=== PATIENT | male | born 1975 | race Caucasian/White ===

== ENCOUNTER → 2021-04-09 | Outpatient (CLI) | payer BC | END | disposition home or self-care (01) | LOC: MRI 14:42 | PROVIDERS: ATTEND Nurse Practitioner Family | DX: G44.52 New daily persistent headache (NDPH) (principal); R47.1 Dysarthria and anarthria ==

== ENCOUNTER → 2021-10-29 | Outpatient (CLI) | payer BC | END | disposition home or self-care (01) | LOC: US 09:42 | PROVIDERS: ATTEND Nurse Practitioner Family | DX: R10.84 Generalized abdominal pain (principal) ==

== ENCOUNTER → 2022-11-10 | Outpatient (CLI) | payer BC | END | disposition home or self-care (01) | LOC: RAD 08:10 | PROVIDERS: ATTEND Nurse Practitioner Family | DX: I51.7 Cardiomegaly (principal); R00.2 Palpitations ==

== ENCOUNTER → 2022-11-12 | Outpatient (CLI) | payer BC | END | disposition home or self-care (01) | LOC: CARD 01:01 | PROVIDERS: ATTEND Nurse Practitioner Family | DX: R00.0 Tachycardia, unspecified (principal); R00.2 Palpitations ==

== ENCOUNTER → 2023-02-26 | Outpatient (CLI) | payer BC | END | disposition home or self-care (01) | LOC: RAD 07:35 | PROVIDERS: ATTEND Nurse Practitioner Family | DX: M51.37 Other intervertebral disc degeneration, lumbosacral region (principal) ==

== ENCOUNTER → 2024-06-26 | Outpatient (CLI) | payer BC ==
[2024-06-26 07:52] LABS: BASO % 0.4 % (0.0-1.0); EOS # 0.1 10*3/uL (0.0-0.4); EOS % 1.6 % (1.0-4.0); HEMATOCRIT 47.9 % (42.0-52.0); MEAN CELL VOLUME 86.8 fl (80.0-94.0); MEAN CORPUSCULAR HGB 28.8 pg (27.0-31.0); MEAN CORPUSCULAR HGB CONC 33.2 g/dl (33.0-37.0); MEAN PLATELET VOLUME 9.1 fl (9.6-12.3); MONO # 0.5 10*3/uL (0.1-1.0); MONO % 6.2 % (3.0-9.0); NEUT # 4.5 10*3/uL (2.3-7.9); NEUT % 60.2 % (47.0-73.0); PLATELET COUNT AUTOMATED 280 10*3/uL (130-400); RED BLOOD COUNT 5.52 10*6/uL (4.50-5.90); RED CELL DISTRI WIDTH 12.4 % (0-14.5); WHITE BLOOD COUNT 7.5 10*3/uL (4.8-10.8)
[2024-06-26 09:46] LABS: ALKALINE PHOSPHATASE 85 U/L (46-116); BUN 19 mg/dl (9-23); CHLORIDE 105 mmol/L (98-107); CHOLESTEROL 150 mg/dL (<200); FREE T4 1.57 ng/dl (0.89-1.76); LDL CHOLESTEROL 77 mg/dL (9-159); POTASSIUM 4.5 mmol/L (3.4-5.1); SGPT/ALT 39 U/L (5-49); TOTAL PROTEIN 6.9 gm/dL (6.0-8.0); TRIGLYCERIDES 159 mg/dl (<150)
== END | disposition home or self-care (01) ==
LOC: LAB 07:29
DX: I10 Essential (primary) hypertension (principal)